=== PATIENT | female | born 1970 | race Caucasian/White ===

== ENCOUNTER 2018-10-12 13:21 | Emergency (ER) | payer OTHER ==
[~2018-10-12] VITALS: Ht 177.8 cm; Wt 116.1 kg
[2018-10-12 15:08] VITALS: BP 127/86
== END 2018-10-12 15:08 | disposition home or self-care (01) ==
LOC: ED 13:21
DX: M54.5 Low back pain (principal); G89.29 Other chronic pain; Z90.711 Acquired absence of uterus with remaining cervical stump
CPT/HCPCS: J2270; Q0162